=== PATIENT | female | born 1955 | race Caucasian/White ===

== ENCOUNTER → 2024-01-12 | Outpatient (REF) | payer MEDICARE | LOC: DX 14:19 | PROVIDERS: ATTEND Internal Medicine Infectious Disease | DX: L03.811 Cellulitis of head [any part, except face] (principal) ==

== ENCOUNTER → 2024-02-17 | Outpatient (REF) | payer MEDICARE ==
[~2024-02-17] MED LIST: IOPAMIDOL 370 MG/ML 100 ML INFUS..BTL INJ ONE
[2024-02-17 13:15] LABS: CREATININE, SERUM 1.1 mg/dL (0.57-1.11)
== END ==
LOC: CT 12:10
PROVIDERS: ATTEND Internal Medicine Infectious Disease
DX: S01.00XA Unspecified open wound of scalp, initial encounter (principal)
CPT/HCPCS: 36415; 70460; 82565; 84520; Q9967